=== PATIENT | female | born 1960 | race Caucasian/White ===

== ENCOUNTER → 2018-10-16 12:06 | Outpatient (CLI) | payer BC, SELFPAY ==
--- NOTE | 2018-10-16 12:14 | XR_ITS ---
XR chest 2V HISTORY: Tobacco use, smoker ITS.REASON: z ORDERING PHYSICIAN: Adolfo Silver MD PATIENT AGE: 57 years COMPARISON: None FINDINGS: The cardiomediastinal silhouette and pulmonary vascularity are within normal limits. The lungs are clear without infiltrates, suspicious nodules, or pleural effusions. No acute bony abnormalities. IMPRESSION: Negative chest, no acute finding
== END ==
PROVIDERS: PCP Internal Medicine; Visit Provider Internal Medicine
DX: R06.02 Shortness of breath (principal); I11.9 Hypertensive heart disease without heart failure; I25.10 Atherosclerotic heart disease of native coronary artery without angina pectoris; I45.10 Unspecified right bundle-branch block
CPT/HCPCS: 71046

== ENCOUNTER → 2019-06-06 12:23 | Outpatient (CLI) | payer BC, SELFPAY ==
--- NOTE | 2019-06-06 12:33 | XR_ITS ---
PROCEDURE: XR CHEST 2V CLINICAL HISTORY: smoker COMPARISON: CXR2V XR chest 2V from 10/16/2018 FINDINGS: The cardiomediastinal silhouette and pulmonary vascularity are within normal limits. The lungs are clear without infiltrates, suspicious nodules, or pleural effusions. Degenerative change thoracic spine IMPRESSION: No change with no acute finding Dictated by: Omi Molina MD 06/06/2019 15:17 Electronically signed by Omi Molina MD in [place] 06/06/2019 15:17
== END ==
PROVIDERS: PCP Internal Medicine; Visit Provider Internal Medicine
DX: F17.200 Nicotine dependence, unspecified, uncomplicated (principal)
CPT/HCPCS: 71046

== ENCOUNTER → 2020-02-11 10:34 | Outpatient (CLI) | payer BC, SELFPAY ==
[2020-02-11 11:25] LABS: Basophils # 0.1 K/mm3 (0-0.2); Basophils % 0.9 % (0.1-2.0); Eosinophils # 0.4 K/mm3 (0.0-0.4); Eosinophils % 4.6 % (0.1-12.0); Hematocrit 38.2 % (37.0-47.0); Hemoglobin 12.4 g/dL (12.2-16.2); Lymphocytes # 2.3 K/mm3 (0.7-4.5); Lymphocytes % 26.8 % (10-50); Mean Corpuscular HGB Conc 32.5 g/dL (31.8-35.4); Mean Corpuscular Hemoglobin 28.3 pg (27.0-31.2); Mean Corpuscular Volume 87.1 fl (81-99); Monocytes # 0.4 K/mm3 (0.1-1.0); Monocytes % 4.2 % (1.7-9.3); Neutrophils # 5.3 K/mm3 (1.8-7.8); Neutrophils % 63.6 % (37.0-80.0); Platelet Count 220 K/mm3 (142-424); Red Blood Count 4.39 M/mm3 (4.20-5.40); Red Cell Distribution Width 16.4 % (11.5-17.5); White Blood Count 8.4 K/mm3 (4.8-10.8)
[2020-02-11 11:47] LABS: Hemoglobin A1C 6.7 % (4.0-6.0)
[2020-02-11 12:18] LABS: Chloride 105 mmol/L (98-107); Potassium 4.4 mmoL/L (3.5-5.1); Sodium 139 mmol/L (136-145)
[2020-02-11 12:20] LABS: Blood Urea Nitrogen 10 mg/dl (7-17); Estimated Glomerular Filt Rate 85 ml/min (>60); GFR (African American) 103 ML/MIN (>60)
[2020-02-11 12:21] LABS: Alanine Aminotransferase 30 U/L (12-78); Alkaline Phosphatase 66 U/L (38-126); Anion Gap 13.4 mEq/L (5-15); Aspartate Amino Transferase 54 U/L (14-36); Bilirubin,Direct 0.2 mg/dl (0.0-0.4); Bilirubin,Indirect 0.2 mg/dL (0.0-0.9); Bilirubin,Total 0.4 mg/dl (0.2-1.3); Bilirubin,Unconjugated 0.2 mg/dL (0.0-1.1); Calcium 9.4 mg/dl (8.4-10.2); Carbon Dioxide 25 mmol/L (22.0-30.0); Cholesterol 145 mg/dl (140-200); Glucose 135 mg/dl (74-100); Total Protein,Serum 7.6 g/dl (6.3-8.2); Triglycerides 295 mg/dl (30-150); VLDL Cholesterol 59 mg/dL (0-40)
[2020-02-11 12:22] LABS: Chol/HDL Ratio 3.4 (1-3.5); HDL Cholesterol 43 mg/dl (40-60)
[2020-02-11 12:32] LABS: Direct LDL Cholesterol 70.92 mg/dL (100-129)
[2020-02-11 12:37] LABS: Free T4 (Free Thyroxine) 1.09 ng/dl (0.78-2.19)
[2020-02-11 12:51] LABS: Thyroid Stimulating Hormone 4.73 uIU/mL (0.465-4.68)
== END ==
PROVIDERS: Visit Provider Urology
DX: E11.69 Type 2 diabetes mellitus with other specified complication (principal); E78.2 Mixed hyperlipidemia; I11.9 Hypertensive heart disease without heart failure; I25.10 Atherosclerotic heart disease of native coronary artery without angina pectoris; I44.0 Atrioventricular block, first degree; I45.10 Unspecified right bundle-branch block; Z72.0 Tobacco use
CPT/HCPCS: 36415; 80048; 80061; 80076; 83036; 84439; 84443; 85025